=== PATIENT | female | born 1935 | race African-American/Black ===

== ENCOUNTER 2018-10-01 09:50 | Inpatient (IN) | payer MEDICARE ==
--- NOTE | 2018-10-01 10:23 | ER Document Report ---
ED General - General Chief Complaint: Breathing Difficulty Stated Complaint: DIFFICULTY BREATHING Time Seen by Provider: 10/01/18 10:09 Information source: Patient Notes: This 83-year-old relatively healthy female presents to the emergency department as direct admit from Dr. Pastrana's office. Patient reports that she has had some difficulty breathing for approximately 1 week with some wheezing and feeling really tired. Denies other symptoms such as cough fever vomiting diarrhea. Reports she has not been gaining weight. Patient reports she was at Dr. Pastrana's office all day yesterday had a chest x-ray. He called her last night they went to the office today and they told him to come over here for admissions. Patient reports that she has a past medical history of breast cancer with mastectomy on the right side anemia and high blood pressure other cuevas she is relatively healthy. Patient reports she is very active she is out in the garden planting her ochoa and cooking. TRAVEL OUTSIDE OF THE [place] IN LAST 30 DAYS: No - HPI Onset: Last week Onset/Duration: Persistent Quality of pain: No pain Associated symptoms: None Exacerbated by: Denies Relieved by: Denies Similar symptoms previously: No Recently seen / treated by doctor: No - Related Data Allergies/Adverse Reactions: No Known Allergies Allergy (Verified 10/01/18 09:50) Past Medical History - General Information source: Patient, Relative - Social History Smoking Status: Unknown if Ever Smoked Cigarette use (# per day): No Frequency of alcohol use: None Drug Abuse: None Family History: None Patient has suicidal ideation: No Patient has homicidal ideation: No - Medical History Medical History: Other - anemia - Past Medical History Cardiac Medical History: Reports: Hx Hypertension Malignancy Medical History: Reports: Hx Breast Cancer Past Surgical History: Reports: Hx Mastectomy Review of Systems - Review of Systems Notes: Review HPI for review of systems., All other systems negative Physical Exam - Vital signs Vitals: Temp Pulse Resp BP Pulse Ox 97.9 F 94 20 146/87 H 96 10/01/18 09:58 10/01/18 09:58 10/01/18 09:58 10/01/18 09:58 10/01/18 09:58 - General General appearance: Appears well, Alert In distress: None - HEENT Head: Normocephalic, Atraumatic Eyes: Normal Neck: Normal, Supple. No: Lymphadenopathy - Respiratory Respiratory status: No respiratory distress Chest status: Nontender Breath sounds: Normal Chest palpation: Normal - Cardiovascular Rhythm: Regular Heart sounds: Normal auscultation Murmur: No - Abdominal Inspection: Normal Tenderness: Nontender - Back Back: Normal - Extremities General upper extremity: Normal ROM General lower extremity: Normal ROM - Neurological Neuro grossly intact: Yes Cognition: Normal Orientation: AAOx4 [place] Coma Scale Eye Opening: Spontaneous [place] Coma Scale Verbal: Oriented [place] Coma Scale Motor: Obeys Commands [place] Coma Scale Total: 15 Speech: Normal - Psychological Associated symptoms: Normal affect, Normal mood - Skin Skin Temperature: Warm Skin Moisture: Dry Skin Color: Normal Course - Re-evaluation Re-evalutation: 10/01/18 10:28 This 83-year-old female presents as a direct admit from Dr. Pastrana's office for new onset CHF. Patient is alert and oriented talks in clear full sentences in very good spirits. She reports approximately 1 week ago she started having difficulty breathing wheezing and felt really tired. She went to see Dr. Pastrana yesterday he sent her for a chest x-ray. Last night he called the house. Today they return to Dr. Pastrana's office and he sent her here as a direct admit to [facility]. Patient denies pain. Denies fever vomiting diarrhea. Denies recent weight gain. Patient is in excellent spirits happy laughing to [id number] at her bedside. Dr. Pastrana orders completed in [facility]. I instructed patient that there are no beds upstairs that she would be staying with us for a little while and as soon as we had a bed on [facility] she would be sent up there. I also educated patient on low-sodium diet. This does not make her very happy but she did understand. She verbalized understanding. 10/01/18 Dr. Pastrana in the emergency department with patient. - Vital Signs Vital signs: Temp Pulse Resp BP Pulse Ox 97.5 F 96 16 146/82 H 96 10/01/18 16:37 10/01/18 17:00 10/01/18 16:37 10/01/18 16:37 10/01/18 16:37 - Laboratory Result Diagrams: 10/01/18 10:42 10/01/18 10:42 Laboratory results interpreted by me: 10/01/18 10/01/18 10/01/18 10:42 10:42 10:42 RDW 14.7 H Est GFR (Non-Af Amer) 53 L Glucose 126 H Creatine Kinase 137 H NT-Pro-B Natriuret Pep 2180 H TSH 10/01/18 10:42 RDW Est GFR (Non-Af Amer) Glucose Creatine Kinase NT-Pro-B Natriuret Pep TSH 7.98 H Discharge - Discharge Clinical Impression: New onset of congestive heart failure Condition: Stable Disposition: ADMITTED OBSERVATION Admitting Provider: Leiwa Unit Admitted: [facility]
[2018-10-01 10:52] LABS: ABSOLUTE BASOPHILS # (AUTO) 0.1 10^3/uL (0.0-0.2); ABSOLUTE LYMPHOCYTES (AUTO) 1.5 10^3/uL (0.5-4.7); ABSOLUTE MONOCYTES (AUTO) 0.6 10^3/uL (0.1-1.4); ABSOLUTE NEUT (AUTO) 3.3 10^3/uL (1.7-8.2); BASOPHILS % (AUTO) 1.2 % (0-2); EOSINOPHILS % (AUTO) 0.7 % (0-6); LYMPHOCYTES % (AUTO) 27.4 % (13-45); MEAN CORPUSCULAR HGB CONC 33.4 g/dL (32.0-36.0); MEAN CORPUSCULAR VOLUME 87 fl (80-97); MONOCYTES % (AUTO) 10.7 % (3-13); PLATELET COUNT 305 10^3/uL (150-450); RED BLOOD COUNT 4.49 10^6/uL (3.72-5.28); RED CELL DISTRIBUTION WIDTH 14.7 % (11.5-14.0); TOTAL CELLS COUNTED % (AUTO) 100 %; WHITE BLOOD COUNT 5.5 10^3/uL (4.0-10.5)
[2018-10-01 11:10] LABS: ALANINE AMINOTRANSFERASE 16 U/L (9-52); ALBUMIN 4.2 g/dL (3.5-5.0); ALKALINE PHOSPHATASE 112 U/L (38-126); ANION GAP 11 (5-19); ASPARTATE AMINO TRANSFERASE 26 U/L (14-36); BILIRUBIN,DIRECT 0.3 mg/dL (0.0-0.4); BILIRUBIN,TOTAL 0.7 mg/dL (0.2-1.3); BLOOD UREA NITROGEN 16 mg/dL (7-20); CALCIUM 9.4 mg/dL (8.4-10.2); CARBON DIOXIDE 24 mmol/L (22-30); CHLORIDE 106 mmol/L (98-107); CREATINE KINASE 137 U/L (30-135); GLUCOSE 126 mg/dL (75-110); POTASSIUM 3.7 mmol/L (3.6-5.0); TOTAL PROTEIN 8.2 g/dL (6.3-8.2)
[2018-10-01 11:21] LABS: CREATINE KINASE MB 1.05 ng/mL (<4.55); NT PRO BNP 2180 pg/mL (<450)
[2018-10-01 11:23] LABS: TROPONIN I < 0.012 ng/mL
[2018-10-01 13:07] LABS: APPEARANCE,URINE SLIGHTLY-CLOUDY; BILIRUBIN,URINE NEGATIVE (NEGATIVE); COLOR,URINE YELLOW; GLUCOSE, URINE NEGATIVE (NEGATIVE); KETONES,URINE NEGATIVE (NEGATIVE); LEUKOCYTE ESTERASE,URINE NEGATIVE (NEGATIVE); NITRITE,URINE NEGATIVE (NEGATIVE); PROTEIN,URINE 30 mg/dL (NEGATIVE); URINE SPECIFIC GRAVITY 1.024
[2018-10-01 17:49] LABS: FREE T4 (FREE THYROXINE) 1.33 ng/dL (0.78-2.19)
[2018-10-01 18:03] LABS: THYROID STIMULATING HORMONE 7.98 uIU/mL (0.47-4.68)
[2018-10-01] MEDS: FUROSEMIDE INJ/PF 40 MG/4 ML SDV IV SCH (18:59)
[2018-10-01] MEDS: ENOXAPARIN SODIUM INJ 40 MG/0.4 ML DISP.SYRIN SUBCUT SCH (18:59)
[2018-10-01 20:06] LABS: CREATINE KINASE MB 1.13 ng/mL (<4.55); TROPONIN I < 0.012 ng/mL
--- NOTE | 2018-10-01 22:01 | XCELERA REPORT ---
[address] [address] Transthoracic Echocardiogram Report Name: REJI SETHI Age: 83 yrs Gender: Female : 1935 Patient Status: Inpatient Patient Location: [place] [address]^A Study Date: 10/01/2018 11:13 AM Height: 62 in Weight: 158 lb BSA: 1.7 m2 Procedure: A two-dimensional transthoracic echocardiogram with color flow and Doppler was performed. Study Quality: Fair. Reason For Study: new onset chf History: CHF. Ordering Physician: KIMBERLEE MEJIA Performed By: Sierra White Interpretation Summary The left ventricle is mildly dilated. There is normal left ventricular wall thickness. LV EF is 40% to 45% Left ventricular systolic function is moderately reduced. Doppler measurements suggest impaired left ventricular relaxation, which is associated with grade I/IV or mild diastolic dysfunction There is moderate global hypokinesis of the left ventricle. There is no thrombus. No ASD , VSD , or PFO seen. The right ventricle is normal in size and function. The right atrium is normal. The left atrial size is normal. There is no evidence of mitral valve prolapse. There is no vegetation seen on the mitral valve. There is no mitral valve stenosis. There is a mild to moderate amount of mitral regurgitation There is no aortic valvular vegetation. There is aortic sclerosis without aortic stenosis. There is no LVOT obstruction. There is a trace amount of aortic regurgitation There is no tricuspid stenosis. There is a mild amount of tricuspid regurgitation There is mild to moderate pulmonary hypertension by echo RVSp is 44 to 49 mm of Hg , with RA mean of 5 to 10. There is no pulmonic valvular stenosis. The aortic root is normal size. The inferior vena cava appeared normal and decreased > 50% with respiration (RAP 5-10 mmHg) There is no pericardial effusion. MMode/2D Measurements & Calculations RVDd: 2.0 cm LVIDd: 5.0 cm FS: 22.6 % Ao root diam: 2.7 cm IVSd: 0.63 cm LVIDs: 3.9 cm EDV(Teich): LVPWd: 0.99 cm 120.7 ml Ao root area: ESV(Teich): 66.1 ml5.8 cm2 EF(Teich): 45.3 % EDV(MOD-sp4): SV(MOD-sp4): 67.9 ml 32.4 ml ESV(MOD-sp4): 35.5 ml EF(MOD-sp4): 47.7 % Doppler Measurements & Calculations MV E max heber: MV dec slope: Ao V2 max: LV V1 max P.3 cm/sec 105.5 cm/sec 3.1 mmHg MV A max heber: 860.6 cm/sec2 Ao max PG: LV V1 max: 120.2 cm/sec MV dec time: 0.12 sec 4.5 mmHg 88.6 cm/sec MV E/A: 0.89 LV dP/dt: 1587 mmHg/s PA V2 max: TR max heber: 68.9 cm/sec 312.8 cm/sec PA max P.9 mmHg TR max P.1 mmHg Left Ventricle The left ventricle is mildly dilated. There is normal left ventricular wall thickness. LV EF is 40% to 45%. Left ventricular systolic function is moderately reduced. Doppler measurements suggest impaired left ventricular relaxation, which is associated with grade I/IV or mild diastolic dysfunction. There is moderate global hypokinesis of the left ventricle. There is no thrombus. No ASD , VSD , or PFO seen. Right Ventricle The right ventricle is normal in size and function. Atria The right atrium is normal. The left atrial size is normal. Mitral Valve There is mild to moderate mitral annular calcification. There is no evidence of mitral valve prolapse. There is no vegetation seen on the mitral valve. There is no mitral valve stenosis. There is a mild to moderate amount of mitral regurgitation. Aortic Valve There is no aortic valvular vegetation. There is aortic sclerosis without aortic stenosis. There is no LVOT obstruction. There is a trace amount of aortic regurgitation. Tricuspid Valve There is no tricuspid stenosis. There is a mild amount of tricuspid regurgitation. There is mild to moderate pulmonary hypertension by echo. RVSp is 44 to 49 mm of Hg , with RA mean of 5 to 10. Pulmonic Valve There is no pulmonic valvular stenosis. There is a trace amount of pulmonic regurgitation. Great Vessels The aortic root is normal size. The inferior vena cava appeared normal and decreased > 50% with respiration (RAP 5-10 mmHg). Effusions There is no pericardial effusion. : KIMBERLEE MEJIA > Nancy Lemus
[2018-10-02 02:48] LABS: ABSOLUTE BASOPHILS # (AUTO) 0.1 10^3/uL (0.0-0.2); ABSOLUTE EOSINOPHILS # (AUTO) 0.1 10^3/uL (0.0-0.6); ABSOLUTE LYMPHOCYTES (AUTO) 2.2 10^3/uL (0.5-4.7); ABSOLUTE MONOCYTES (AUTO) 0.8 10^3/uL (0.1-1.4); ABSOLUTE NEUT (AUTO) 6.4 10^3/uL (1.7-8.2); BASOPHILS % (AUTO) 1.3 % (0-2); EOSINOPHILS % (AUTO) 0.6 % (0-6); HEMATOCRIT 36.3 % (36.0-47.0); LYMPHOCYTES % (AUTO) 22.5 % (13-45); MEAN CORPUSCULAR HEMOGLOBIN 28.7 pg (27.0-33.4); MEAN CORPUSCULAR HGB CONC 33.1 g/dL (32.0-36.0); MEAN CORPUSCULAR VOLUME 87 fl (80-97); MONOCYTES % (AUTO) 8.2 % (3-13); PLATELET COUNT 255 10^3/uL (150-450); RED BLOOD COUNT 4.19 10^6/uL (3.72-5.28); RED CELL DISTRIBUTION WIDTH 14.6 % (11.5-14.0); SEGMENTED NEUTROPHILS % (AUTO) 67.4 % (42-78); TOTAL CELLS COUNTED % (AUTO) 100 %; WHITE BLOOD COUNT 9.6 10^3/uL (4.0-10.5)
[2018-10-02 02:58] LABS: ANION GAP 11 (5-19); BLOOD UREA NITROGEN 16 mg/dL (7-20); CALCIUM 8.6 mg/dL (8.4-10.2); CARBON DIOXIDE 25 mmol/L (22-30); CHLORIDE 106 mmol/L (98-107); GLUCOSE 143 mg/dL (75-110); POTASSIUM 3.6 mmol/L (3.6-5.0)
[2018-10-02 03:03] LABS: CREATINE KINASE MB 1.02 ng/mL (<4.55)
[2018-10-02 03:10] LABS: ALBUMIN 3.9 g/dL (3.5-5.0); ASPARTATE AMINO TRANSFERASE 28 U/L (14-36); TROPONIN I < 0.012 ng/mL
[2018-10-02 03:11] LABS: ALANINE AMINOTRANSFERASE 12 U/L (9-52); ALKALINE PHOSPHATASE 99 U/L (38-126); BILIRUBIN,DIRECT 0.4 mg/dL (0.0-0.4); BILIRUBIN,TOTAL 0.5 mg/dL (0.2-1.3); DIRECT LDL 130 mg/dL (<100); TOTAL PROTEIN 8.1 g/dL (6.3-8.2); TRIGLYCERIDES 113 mg/dL (<150); VLDL CHOLESTEROL 22.6 mg/dL (10-31)
--- NOTE | 2018-10-02 08:08 | EKG REPORT ---
SEVERITY:- ABNORMAL ECG - SINUS TACHYCARDIA VENTRICULAR PREMATURE COMPLEX PROBABLE LEFT ATRIAL ABNORMALITY LEFT AXIS DEVIATION LVH WITH SECONDARY REPOLARIZATION ABNORMALITY BORDERLINE PROLONGED QT INTERVAL : Confirmed by: Nancy Lemus MD 01-Oct-2018 21:29:34
[2018-10-02] MEDS: FUROSEMIDE INJ/PF 40 MG/4 ML SDV IV SCH (09:26)
[2018-10-02] MEDS: CARVEDILOL 3.125 MG TABLET PO SCH ×2 (09:26→21:11)
[2018-10-02] MEDS: ENOXAPARIN SODIUM INJ 40 MG/0.4 ML DISP.SYRIN SUBCUT SCH (09:26)
[2018-10-02] MEDS: SACUBITRIL/VALSARTAN 24 MG/26 MG TABLET PO SCH ×2 (09:36→17:20)
--- NOTE | 2018-10-02 15:03 | RADIOLOGY REPORT (SQ) ---
EXAM DESCRIPTION: CHEST 2 VIEWS COMPLETED DATE/TIME: 10/02/2018 2:22 pm REASON FOR STUDY: chf COMPARISON: None. EXAM PARAMETERS: NUMBER OF VIEWS: two views TECHNIQUE: Digital Frontal and Lateral radiographic views of the chest acquired. RADIATION DOSE: NA LIMITATIONS: none FINDINGS: LUNGS AND PLEURA: Increasing right pleural effusion. MEDIASTINUM AND HILAR STRUCTURES: No masses or contour abnormalities. HEART AND VASCULAR STRUCTURES: Cardiomegaly. No pulmonary edema. There is ectasia of the ascending aorta. BONES: No acute findings. HARDWARE: None in the chest. OTHER: No other significant finding. IMPRESSION: Increasing right pleural effusion. Cardiomegaly. No pulmonary edema. Ectasia of the a scending aorta. TECHNICAL DOCUMENTATION: JOB ID: [id number] [employer]- All Rights Reserved Reading location - IP/workstation name: [email or web address]
--- NOTE | 2018-10-02 18:18 | EKG REPORT ---
SEVERITY:- ABNORMAL ECG - SINUS TACHYCARDIA PROBABLE LEFT ATRIAL ABNORMALITY LEFT AXIS DEVIATION LVH WITH SECONDARY REPOLARIZATION ABNORMALITY BORDERLINE PROLONGED QT INTERVAL : Confirmed by: Nancy Lemus MD 02-Oct-2018 18:18:08
--- NOTE | 2018-10-02 19:25 | PDOC H&P ---
History of Present Illness Admission Date/PCP: 10/01/18 10:43 ARLETH ROSAS MD History of Present Illness: REJI SETHI is a 83 year old female, She came to the office for the first time yesterday as a new patient, she complained of wheezing about a week ago, she said the symptoms started when she went for a , she thought the symptom was probably because she was overheated.I ordered a chest x-ray, it demonstrated pleural effusion,The symptoms she described was suspicious for CHF, she was admitted from a patient into the hospital for further evaluation of her symptoms. The BNP was elevated,, 2D echo was done, it demonstrated dilated left ventricle with ejection fraction of 40% there was also associated pulmonary hypertension. She has no history of documented heart failure so clearly this is a new onset CHF.She has history of hypertension, she uses only diuretic hydrochlorothiazide/triamterene for the control of blood pressure, She is not even compliant with the medication Past Medical History Cardiac Medical History: Reports: Hypertension Malignancy Medical History: Reports: Breast Cancer Past Surgical History Past Surgical History: Reports: Mastectomy Social History Smoking Status: Unknown if Ever Smoked Frequency of Alcohol Use: None Hx Recreational Drug Use: No Hx Prescription Drug Abuse: No Family History Family History: None Parental Family History Reviewed: Yes Children Family History Reviewed: Yes Sibling(s) Family History Reviewed.: Yes Medication/Allergy Home Medications: Aspirin [Ecotrin 81 mg EC Tablet] 81 mg PO DAILY 10/01/18 Ferrous Sulfate [Slow Fe] 142 mg PO DAILY 10/01/18 Ibuprofen 200 mg PO DAILYP PRN 10/01/18 Triamterene/Hydrochlorothiazid [Maxzide 75 mg-50 mg Tablet] 1 each PO DAILY 10/01/18 Allergies/Adverse Reactions: Something with Codeine in it Allergy (Uncoded 10/02/18 03:41) unspecified Allergy (Uncoded 10/02/18 03:40) Review of Systems Constitutional: PRESENT: fatigue Eyes: ABSENT: visual disturbances Ears: ABSENT: hearing changes Cardiovascular: PRESENT: dyspnea on exertion, edema, orthropnea Respiratory: ABSENT: cough, hemoptysis Gastrointestinal: ABSENT: abdominal pain, constipation, diarrhea, hematemesis, hematochezia, nausea, vomiting Genitourinary: ABSENT: dysuria, hematuria Musculoskeletal: ABSENT: joint swelling Integumentary: ABSENT: rash, wounds Neurological: ABSENT: abnormal gait, abnormal speech, confusion, dizziness, focal weakness, syncope Psychiatric: ABSENT: anxiety, depression, homidical ideation, suicidal ideation Endocrine: ABSENT: cold intolerance, heat intolerance, menstrual abnormalities, polydipsia, polyuria Hematologic/Lymphatic: ABSENT: easy bleeding, easy bruising, lymphadenopathy Physical Exam Vital Signs: Temp Pulse Resp BP Pulse Ox 98.0 F 93 16 129/79 H 92 10/02/18 15:27 10/02/18 15:27 10/02/18 15:27 10/02/18 15:27 10/02/18 15:27 Intake & Output 10/01/18 10/02/18 10/03/18 06:59 06:59 06:59 Intake Total 240 515 Output Total 100 500 Balance 140 15 Weight 69.7 kg General appearance: PRESENT: mild distress Head exam: PRESENT: atraumatic, normocephalic Eye exam: PRESENT: conjunctiva pink, EOMI, PERRLA Ear exam: PRESENT: normal external ear exam Mouth exam: PRESENT: moist, tongue midline Neck exam: PRESENT: full ROM Respiratory exam: PRESENT: wheezes Cardiovascular exam: PRESENT: irregular rhythm, RRR, +S1, +S2 Pulses: PRESENT: normal dorsalis pedis pul, +2 pedal pulses bilateral Vascular exam: PRESENT: normal capillary refill GI/Abdominal exam: PRESENT: normal bowel sounds, soft Rectal exam: PRESENT: deferred Extremities exam: PRESENT: pedal edema Neurological exam: PRESENT: alert, CN II-XII grossly intact Psychiatric exam: PRESENT: appropriate affect, normal mood Skin exam: PRESENT: dry, intact, warm Results Laboratory Results: 10/02/18 02:31 10/02/18 02:31 10/02/18 10/02/18 10/02/18 02:31 02:31 02:31 WBC 9.6 RBC 4.19 Hgb 12.0 Hct 36.3 MCV 87 MCH 28.7 MCHC 33.1 RDW 14.6 H Plt Count 255 Seg Neutrophils % 67.4 Lymphocytes % 22.5 Monocytes % 8.2 Eosinophils % 0.6 Basophils % 1.3 Absolute Neutrophils 6.4 Absolute Lymphocytes 2.2 Absolute Monocytes 0.8 Absolute Eosinophils 0.1 Absolute Basophils 0.1 Sodium 141.5 Potassium 3.6 Chloride 106 Carbon Dioxide 25 Anion Gap 11 BUN 16 Creatinine 1.06 Est GFR ( Amer) > 60 Est GFR (Non-Af Amer) 49 L Glucose 143 H Calcium 8.6 Total Bilirubin 0.5 AST 28 ALT 12 Alkaline Phosphatase 99 Total Protein 8.1 Albumin 3.9 Triglycerides 113 Cholesterol 192.00 LDL Cholesterol Direct 130 H VLDL Cholesterol 22.6 HDL Cholesterol 37 L 10/01/18 10/01/18 10/01/18 10:42 10:42 19:21 Creatine Kinase 137 H 149 H CK-MB (CK-2) 1.05 Troponin I < 0.012 NT-Pro-B Natriuret Pep 2180 H 10/01/18 10/02/18 10/02/18 19:21 02:31 02:31 Creatine Kinase 142 H CK-MB (CK-2) 1.13 1.02 Troponin I < 0.012 < 0.012 NT-Pro-B Natriuret Pep Impressions: Chest X-Ray 10/02/18 00:00 IMPRESSION: Increasing right pleural effusion. Cardiomegaly. No pulmonary edema. Ectasia of the ascending aorta. Assessment & Plan - Diagnosis (1) Acute systolic heart failure Is this a current diagnosis for this admission?: Yes Plan: She has acute systolic heart failure, this is a new diagnosis for this patient, we need to rule out underlining ischemic heart disease, patient will be be scheduled for a stress test. Start Entresto, evidence-based beta-reggie carvedilol, furosemide (2) Pulmonary hypertension Is this a current diagnosis for this admission?: Yes (3) Essential (primary) hypertension Is this a current diagnosis for this admission?: Yes (4) Pleural effusion, right Is this a current diagnosis for this admission?: Yes
--- NOTE | 2018-10-02 19:29 | PDOC PROGRESS REPORT ---
Subjective Progress Note for:: 10/02/18 Subjective:: Patient was seen by the bedside, chest x-ray showed right pleural effusion, thoracentesis will be ordered Reason For Visit: HEART FAILURE Physical Exam Vital Signs: Temp Pulse Resp BP Pulse Ox 98.0 F 93 16 129/79 H 92 10/02/18 15:27 10/02/18 15:27 10/02/18 15:27 10/02/18 15:27 10/02/18 15:27 Intake & Output 10/01/18 10/02/18 10/03/18 06:59 06:59 06:59 Intake Total 240 515 Output Total 100 500 Balance 140 15 Weight 69.7 kg Results Laboratory Results: 10/02/18 02:31 10/02/18 02:31 10/02/18 10/02/18 10/02/18 02:31 02:31 02:31 WBC 9.6 RBC 4.19 Hgb 12.0 Hct 36.3 MCV 87 MCH 28.7 MCHC 33.1 RDW 14.6 H Plt Count 255 Seg Neutrophils % 67.4 Lymphocytes % 22.5 Monocytes % 8.2 Eosinophils % 0.6 Basophils % 1.3 Absolute Neutrophils 6.4 Absolute Lymphocytes 2.2 Absolute Monocytes 0.8 Absolute Eosinophils 0.1 Absolute Basophils 0.1 Sodium 141.5 Potassium 3.6 Chloride 106 Carbon Dioxide 25 Anion Gap 11 BUN 16 Creatinine 1.06 Est GFR ( Amer) > 60 Est GFR (Non-Af Amer) 49 L Glucose 143 H Calcium 8.6 Total Bilirubin 0.5 AST 28 ALT 12 Alkaline Phosphatase 99 Total Protein 8.1 Albumin 3.9 Triglycerides 113 Cholesterol 192.00 LDL Cholesterol Direct 130 H VLDL Cholesterol 22.6 HDL Cholesterol 37 L 10/01/18 10/01/18 10/01/18 10:42 10:42 19:21 Creatine Kinase 137 H 149 H CK-MB (CK-2) 1.05 Troponin I < 0.012 NT-Pro-B Natriuret Pep 2180 H 10/01/18 10/02/18 10/02/18 19:21 02:31 02:31 Creatine Kinase 142 H CK-MB (CK-2) 1.13 1.02 Troponin I < 0.012 < 0.012 NT-Pro-B Natriuret Pep Impressions: Chest X-Ray 10/02/18 00:00 IMPRESSION: Increasing right pleural effusion. Cardiomegaly. No pulmonary edema. Ectasia of the ascending aorta. Assessment & Plan - Diagnosis (1) Acute systolic heart failure Is this a current diagnosis for this admission?: Yes Plan: She has acute systolic heart failure, this is a new diagnosis for this patient, we need to rule out underlining ischemic heart disease, patient will be be scheduled for a stress test. Start Entresto, evidence-based beta-reggie carvedilol, furosemide (2) Pulmonary hypertension Is this a current diagnosis for this admission?: Yes (3) Essential (primary) hypertension Is this a current diagnosis for this admission?: Yes (4) Pleural effusion, right Is this a current diagnosis for this admission?: Yes Plan: order thoracentesis
[2018-10-02 19:59] LABS: INTERNATIONAL RATION (INR) 1.07; PROTHROMBIN TIME 13.9 SEC (11.4-15.4)
[2018-10-02 20:00] LABS: PARTIAL THROMBOPLASTIN TIME 35.8 SEC (23.5-35.8)
[2018-10-02 20:30] LABS: D-DIMER 5.77 ug/mL (0.00-0.50)
[2018-10-03 05:52] LABS: ABSOLUTE BASOPHILS # (AUTO) 0.1 10^3/uL (0.0-0.2); ABSOLUTE LYMPHOCYTES (AUTO) 1.3 10^3/uL (0.5-4.7); ABSOLUTE MONOCYTES (AUTO) 0.7 10^3/uL (0.1-1.4); ABSOLUTE NEUT (AUTO) 4.2 10^3/uL (1.7-8.2); BASOPHILS % (AUTO) 0.9 % (0-2); EOSINOPHILS % (AUTO) 0.4 % (0-6); HEMATOCRIT 39.8 % (36.0-47.0); HEMOGLOBIN 13.4 g/dL (12.0-15.5); LYMPHOCYTES % (AUTO) 20.1 % (13-45); MEAN CORPUSCULAR HEMOGLOBIN 29.2 pg (27.0-33.4); MEAN CORPUSCULAR HGB CONC 33.8 g/dL (32.0-36.0); MEAN CORPUSCULAR VOLUME 86 fl (80-97); MONOCYTES % (AUTO) 11.2 % (3-13); PLATELET COUNT 314 10^3/uL (150-450); RED BLOOD COUNT 4.61 10^6/uL (3.72-5.28); RED CELL DISTRIBUTION WIDTH 14.7 % (11.5-14.0); SEGMENTED NEUTROPHILS % (AUTO) 67.4 % (42-78); TOTAL CELLS COUNTED % (AUTO) 100 %; WHITE BLOOD COUNT 6.3 10^3/uL (4.0-10.5)
[2018-10-03 06:03] LABS: ALANINE AMINOTRANSFERASE 16 U/L (9-52); ALBUMIN 3.8 g/dL (3.5-5.0); ALKALINE PHOSPHATASE 114 U/L (38-126); ANION GAP 10 (5-19); ASPARTATE AMINO TRANSFERASE 22 U/L (14-36); BILIRUBIN,DIRECT 0.3 mg/dL (0.0-0.4); BILIRUBIN,TOTAL 0.6 mg/dL (0.2-1.3); BLOOD UREA NITROGEN 17 mg/dL (7-20); CALCIUM 9.3 mg/dL (8.4-10.2); CARBON DIOXIDE 24 mmol/L (22-30); CHLORIDE 106 mmol/L (98-107); GLUCOSE 120 mg/dL (75-110); POTASSIUM 3.8 mmol/L (3.6-5.0); TOTAL PROTEIN 7.8 g/dL (6.3-8.2)
[2018-10-03] MEDS: ENOXAPARIN SODIUM INJ 40 MG/0.4 ML DISP.SYRIN SUBCUT SCH (09:40)
[2018-10-03] MEDS: FUROSEMIDE INJ/PF 40 MG/4 ML SDV IV SCH (10:05)
[2018-10-03] MEDS: CARVEDILOL 3.125 MG TABLET PO SCH ×2 (10:05→21:11)
[2018-10-03] MEDS: SACUBITRIL/VALSARTAN 24 MG/26 MG TABLET PO SCH ×2 (10:05→17:25)
[2018-10-03] MEDS ORDERED: REGADENOSON INJ 0.4 MG/5 ML DISP.SYRIN IV ONE (10:20)
--- NOTE | 2018-10-03 11:43 | RADIOLOGY REPORT (SQ) ---
EXAM DESCRIPTION: CHEST SINGLE VIEW COMPLETED DATE/TIME: 10/03/2018 11:07 am REASON FOR STUDY: RIGHT PLEURAL EFFUSION POST THORACENTESIS COMPARISON: Chest film 10/02/2018 1416 hours EXAM PARAMETERS: NUMBER OF VIEWS: One view. TECHNIQUE: Single frontal radiographic view of the chest acquired. RADIATION DOSE: NA LIMITATIONS: None. FINDINGS: LUNGS AND PLEURA: Post right-sided thoracentesis. No right-sided pneumothorax on the imme diate post procedure chest film. There is right sided volume loss with elevation of the right hemidiaphragm. Consolidation in the rig ht lower lobe is present worrisome for postobstructive change from hilar mass. No right-sided pneumo thorax Left lung well inflated and clear. No left pleural effusion or pneumothorax. MEDIASTINUM AND HILAR STRUCTURES: Right hilar enlargement HEART AND VASCULAR STRUCTURES: Heart normal in size. Normal vasculature. BONES: No acute findings. HARDWARE: Surgical clips right axilla post mastectomy. OTHER: No other significant finding. IMPRESSION: No pneumothorax post right-sided thoracentesis. Right hilar mass with right lower lobe collapse/ consolidation and volume loss. TECHNICAL DOCUMENTATION: JOB ID: [id number] [employer]- All Rights Reserved Reading location - IP/workstation name: [email or web address]
--- NOTE | 2018-10-03 11:45 | RADIOLOGY REPORT (SQ) ---
EXAM DESCRIPTION: U/S THORACENTESIS WITH IMAGING COMPLETED DATE/TIME: 10/03/2018 11:19 am REASON FOR STUDY: PLEURAL EFFUSION R07.89 OTHER CHEST PAIN COMPARISON: Two-view chest 10/02/2018 LIMITATIONS: None. PROCEDURE: Procedure, risks, benefit, and alternative explained to patient who then gave written con sent. The posterior right chest wall was marked using ultrasound guidance. A time-out was called fo r correct marking verification. Chest prepped and draped using sterile technique. Local anesthesia a chieved using 4 ml of 1% lidocaine injection. A 6fr Safe-T- Centesis set was introduced into the rig ht pleural space. Fluid was aspirated. The catheter was removed and the entry site was covered with sterile bandage. No immediate complications noted. Specimens were sent for testing. Images acquired during the procedure were stored on PACS. FINDINGS: ENTRY SITE: Posterior right pleural space FLUID VOLUME: 400 mL FLUID ANALYSIS: Bloody fluid OTHER: Sent for testing, cytology IMPRESSION: SUCCESSFUL THORACENTESIS USING ULTRASOUND GUIDANCE. COMMENT: Patient medication list reviewed: Yes- Quality ID# [id number]:Eligible professional attests to doc umenting in the medical record they obtained, updated, or reviewed the patient's current medications. TECHNICAL DOCUMENTATION: JOB ID: [id number] [employer]- All Rights Reserved Reading location - IP/workstation name: [email or web address]
[2018-10-03] MEDS ORDERED: NORMAL SALINE 1000 ML 1,000 ML IV PRN (12:01)
--- NOTE | 2018-10-03 13:37 | RADIOLOGY REPORT (SQ) ---
EXAM DESCRIPTION: CHEST SINGLE VIEW COMPLETED DATE/TIME: 10/03/2018 1:25 pm REASON FOR STUDY: RIGHT PLEURAL EFFUSION POST THORACENTESIS COMPARISON: Minimal right pleural effusion. 10/03/2018 EXAM PARAMETERS: NUMBER OF VIEWS: One view. TECHNIQUE: Single frontal radiographic view of the chest acquired. RADIATION DOSE: NA LIMITATIONS: None. FINDINGS: LUNGS AND PLEURA: No opacities, masses or pneumothorax. No pleural effusion. MEDIASTINUM AND HILAR STRUCTURES: No masses. Contour normal. HEART AND VASCULAR STRUCTURES: Cardiomegaly. Ectasia of the ascending aorta. No pulmonary edema. BONES: No acute findings. HARDWARE: None in the chest. OTHER: No other significant finding. IMPRESSION: No pneumothorax status post thoracentesis. Cardiomegaly without pulmonary edema. Ectas ia of the ascending aorta. TECHNICAL DOCUMENTATION: JOB ID: [id number] [employer]- All Rights Reserved Reading location - IP/workstation name: [email or web address]
--- NOTE | 2018-10-03 14:40 | DRAGON STRESS TEST REPORT ---
Intravenous Lexiscan Cardiolite stress test using single photon emmision computerized tomography. Date of procedure: 10/03/2018. Ordering Provider: Dr. Pastrana. Patient's status: In Patient. Indication: Chest pain. Coronary risk factors: Age, diabetes mellitus, and hypertension. Resting EKG: Sinus Rhythm. T inversion anterior and lateral leads. Stress EKG: No changes of ischemia. The patient had no chest pain or discomfort, and there were no arrhythmias seen. Reason for termination: Protocol. Conclusions: Normal EKG and hemodynamic response to IV Lexiscan. Nuclear data: At rest the patient was given 10.92 millicuries of technetium 99m sestamibi injected intravenously. As per protocol rest non gated SPECT images were obtained. Subsequently the patient was given intravenous Lexiscan at a dose of 0.4 mg in 5 mL intravenously, followed by flush with normal saline. Subsequently the stress dose of 32.5 millicuries of technetium 99m sestamibi was injected intravenously. As per protocol stress gated images were obtained. Nuclear interpretation: Review of images showed that there is a mild to moderate perfusion defect involving the apical inferior wall in the stress images which normalizes on the rest images. This area had normal thickening. The rest of the myocardial segments are normal function at rest and normal perfusion post stress with IV Lexiscan. All segments of the myocardium had normal thickening by gated study. Although the left ventricular size is normal there is global diffuse hypokinesis consistent with cardiomyopathy. T. I D. ratio was normal at 0.93. There is no transient ischemic dilatation of the left ventricle. Computer read rest, and stress left ventricular ejection fraction were 27 %, and 25 %, respectively. Conclusion: 1. There is scintigraphic evidence of Lexiscan induced mild to moderate myocardial ischemia, involving the apical inferior wall. 2. There is no scintigraphic evidence of myocardial infarction/scar. 3. Evidence of cardiomyopathy with significantly depressed LV systolic function. Recommendations: 1. Aggressive treatment of coronary artery disease and cardiomyopathy. 2. In view of the patient's LV dysfunction would strongly recommend cardiac catheterization. 3. Check echo for LV ejection fraction correlation. 4. Aggressive risk factor modification, and treating the underlying co- morbidities. The above findings were discussed with Dr. Pastrana on the telephone. [facility]
[2018-10-03 14:45] LABS: FLUID APPEARANCE TURBID; FLUID COLOR RED; FLUID SOURCE LUNG; FLUID TYPE PLEURAL; FLUID VISCOSITY LIQUID
--- NOTE | 2018-10-03 14:57 | RADIOLOGY REPORT (SQ) ---
EXAM DESCRIPTION: CT CHEST WITH COMPLETED DATE/TIME: 10/03/2018 2:29 pm REASON FOR STUDY: hilar mass R07.89 OTHER CHEST PAIN COMPARISON: Chest films 10/03/2018, 09/30/2018 TECHNIQUE: CT scan of the chest performed using helical scanning technique with dynamic intravenous contrast injection. Images reviewed with lung, soft tissue and bone windows. Reconstructed coronal and sagittal MPR and MIP images reviewed. All images stored on PACS. All CT scanners at this facility use dose modulation, iterative reconstruction, and/or weight based d osing when appropriate to reduce radiation dose to as low as reasonably achievable (ALARA). [facility]: Dose Right [facility]: CareDose [facility]: Dose Right [facility]: Teradose 4D [facility]: Viratech CONTRAST TYPE AND DOSE: contrast/concentration: Isovue 350.00 mg/ml; Total Contrast Delivered: 66.7 ml; Total Saline Delivered: 20.0 ml RENAL FUNCTION: Creatinine 0.89 RADIATION DOSE: CT Rad equipment meets quality standard of care and radiation dose reduction techniq ues were employed. CTDIvol: 5.8 mGy. DLP: 213 mGy-cm. . LIMITATIONS: None. FINDINGS: LUNGS AND PLEURA: There is a larger right-sided mediastinal and hilar mass which narrows t he segmental bronchi to the right lower lobe, with a peripheral rim of lung parenchyma volume loss wi th air bronchograms just above the right hemidiaphragm. A 7 mm smooth round nodule is present in the superior segment right lower lobe, axial image 56/121. A 5 mm smooth round noncalcified nodule is present in the left upper lobe adjacent to the major fissu re on axial image 38/121. Patient is post right mastectomy and axillary surgical dissection. Old radiation therapy changes pre sent along the anterior aspect of the right upper lobe. No acute infiltrates. No pleural effusion. No pneumothorax. HILAR AND MEDIASTINAL STRUCTURES: There is a right-sided mediastinal mass, extending from the thoraci c inlet along the right peritracheal and right hilar regions down to the right hemidiaphragm. This m easures 12.6 cm craniocaudad by 4.5 cm transverse by 6 cm AP, best shown on sagittal image 29, jackson l image 39, and axial images 17-40. This most likely represents a primary malignancy, small cell veena g cancer versus lymphoma are considerations. There is extrinsic compression on the right lower lobe segmental airways by the right-sided mass. No significant extrinsic compression of the right brachiocephalic artery or vein, left brachiocephalic vein or superior vena cava. HEART AND VASCULAR STRUCTURES: No aneurysm or dissection. No central pulmonary emboli. No pericardi al effusion. HARDWARE: None in the chest. UPPER ABDOMEN: Small hiatal hernia. 1 cm nodule is present between the right hemidiaphragm and right lobe liver on axial image 49. THYROID AND OTHER SOFT TISSUES: Old right mastectomy with right axillary surgical clips. BONES: No significant finding. OTHER: No other significant finding. IMPRESSION: 12.6 x 4.5 x 6 cm right-sided mediastinal mass worrisome for primary malignancy, lung ca ncer versus lymphoma are considerations. Recurrent breast cancer is possible. TECHNICAL DOCUMENTATION: JOB ID: [id number] Quality ID # [id number]: Final reports with documentation of one or more dose reduction techniques (e.g., Au tomated exposure control, adjustment of the mA and/or kV according to patient size, use of iterative reconstruction technique) 2010 [email or web address]- All Rights Reserved Reading location - IP/workstation name: [email or web address]
--- NOTE | 2018-10-03 18:58 | PDOC PROGRESS REPORT ---
Subjective Progress Note for:: 10/03/18 Subjective:: Patient was seen by the bedside, she was admitted because of concern for CHF, 2D echo was done that demonstrated cardiomyopathy with ejection fraction of 40%, chest x-ray that was done demonstrated right pleural effusion, that raises my concern that if she truly has CHF the pleural effusion should be bilateral because of my concern and requested for thoracentesis. The thoracentesis demonstrated bloody pleural effusion with hilar mass CT chest was done this afternoon it showed a right-sided mediastinal mass extending from the thoracic inlet along the right peritracheal and right hilar regions down to the right hemidiaphragm this mass measures 12.6 cm craniocaudal by 4.5 cm transverse by 6 cm AP highly suspicious for a primary malignancy. There is also extrinsic compression of the right lower lobe segmental airway with a right-sided mass.She also had a stress test today, the stress test was positive for ischemia the post stress test EF was about 30%.I discussed all these findings with the family today including the patient and the children she will need a biopsy of this mass to determine if this is a recurrent breast cancer, she has a history of breast cancer obviously she will need oncology follow-up probably cardiology follow-up. I also explained to the family that I be out of the office and the hospital for the coming week. Dr. Chandler and Dr. anderson will be covering my patients Reason For Visit: ACUTE SYSTOLIC FAILURE Physical Exam Vital Signs: Temp Pulse Resp BP Pulse Ox 97.9 F 88 18 122/69 95 10/03/18 16:18 10/03/18 16:18 10/03/18 16:18 10/03/18 16:18 10/03/18 16:18 Intake & Output 10/02/18 10/03/18 10/04/18 06:59 06:59 06:59 Intake Total 240 515 200 Output Total 100 800 Balance 140 -285 200 Weight 69.7 kg 70.7 kg General appearance: PRESENT: no acute distress Eye exam: PRESENT: PERRLA Respiratory exam: PRESENT: rhonchi Cardiovascular exam: PRESENT: +S1, +S2 GI/Abdominal exam: PRESENT: soft Neurological exam: PRESENT: alert Results Laboratory Results: 10/03/18 05:17 10/03/18 05:17 10/03/18 10/03/18 10/03/18 05:17 05:17 10:50 WBC 6.3 RBC 4.61 Hgb 13.4 Hct 39.8 MCV 86 MCH 29.2 MCHC 33.8 RDW 14.7 H Plt Count 314 Seg Neutrophils % 67.4 Lymphocytes % 20.1 Monocytes % 11.2 Eosinophils % 0.4 Basophils % 0.9 Absolute Neutrophils 4.2 Absolute Lymphocytes 1.3 Absolute Monocytes 0.7 Absolute Eosinophils 0.0 Absolute Basophils 0.1 Sodium 140.2 Potassium 3.8 Chloride 106 Carbon Dioxide 24 Anion Gap 10 BUN 17 Creatinine 0.89 Est GFR ( Amer) > 60 Est GFR (Non-Af Amer) > 60 Glucose 120 H Calcium 9.3 Total Bilirubin 0.6 AST 22 ALT 16 Alkaline Phosphatase 114 Total Protein 7.8 Albumin 3.8 Fluid Type PLEURAL Fluid Source LUNG Fluid Color RED Fluid Appearance TURBID Fluid Viscosity LIQUID Fluid WBC 18247 Fluid RBC 273198 10/01/18 10/01/18 10/01/18 10:42 10:42 19:21 Creatine Kinase 137 H 149 H CK-MB (CK-2) 1.05 Troponin I < 0.012 NT-Pro-B Natriuret Pep 2180 H 10/01/18 10/02/18 10/02/18 19:21 02:31 02:31 Creatine Kinase 142 H CK-MB (CK-2) 1.13 1.02 Troponin I < 0.012 < 0.012 NT-Pro-B Natriuret Pep Impressions: Chest CT 10/03/18 00:00 IMPRESSION: 12.6 x 4.5 x 6 cm right-sided mediastinal mass worrisome for primary malignancy, lung cancer versus lymphoma are considerations. Recurrent breast cancer is possible. Chest X-Ray 10/03/18 12:56 IMPRESSION: No pneumothorax status post thoracentesis. Cardiomegaly without pulmonary edema. Ectasia of the ascending aorta. Thoracentesis Ultrasound 10/03/18 19:06 IMPRESSION: SUCCESSFUL THORACENTESIS USING ULTRASOUND GUIDANCE. Assessment & Plan - Diagnosis (1) Acute systolic heart failure Is this a current diagnosis for this admission?: Yes (2) Pulmonary hypertension Is this a current diagnosis for this admission?: Yes (3) Essential (primary) hypertension Is this a current diagnosis for this admission?: Yes (4) Pleural effusion, right Is this a current diagnosis for this admission?: Yes (5) Malignant pleural effusion Is this a current diagnosis for this admission?: Yes Plan: 400 cc of hemorrhagic pleural fluid was drained suggesting malignant pleural effusion,Fluid sent for cytology (6) Mediastinal mass Is this a current diagnosis for this admission?: Yes Plan: CT-guided biopsy ordered (7) Ischemic cardiomyopathy Is this a current diagnosis for this admission?: Yes
[2018-10-04] MEDS: SACUBITRIL/VALSARTAN 24 MG/26 MG TABLET PO SCH ×2 (10:08→17:28)
[2018-10-04] MEDS: CARVEDILOL 3.125 MG TABLET PO SCH ×2 (10:08→21:45)
[2018-10-04] MEDS: ENOXAPARIN SODIUM INJ 40 MG/0.4 ML DISP.SYRIN SUBCUT SCH (10:08)
[2018-10-04 18:55] LABS: TOTAL PROTEIN BODY FLUID 5.4 g/dL (.)
--- NOTE | 2018-10-04 19:30 | PDOC PROGRESS REPORT ---
Subjective Progress Note for:: 10/04/18 Subjective:: Patient denied any chest pain or difficulty with breathing. No fever or chills. No nausea, vomiting or abdominal pain. No constipation. Appetiet and po intake satisfactory. Daughter at bedside at the time of my evaluation. Reason For Visit: ACUTE SYSTOLIC FAILURE Physical Exam Vital Signs: Temp Pulse Resp BP Pulse Ox 98.1 F 101 H 18 115/68 96 10/04/18 12:00 10/04/18 14:00 10/04/18 12:00 10/04/18 12:00 10/04/18 12:00 Intake & Output 10/03/18 10/04/18 10/05/18 06:59 06:59 06:59 Intake Total 515 1015 Output Total 800 400 Balance -285 615 Weight 70.7 kg 72.3 kg General appearance: PRESENT: no acute distress Head exam: PRESENT: atraumatic, normocephalic Eye exam: PRESENT: conjunctiva pink. ABSENT: scleral icterus Ear exam: PRESENT: normal external ear exam Mouth exam: PRESENT: moist Respiratory exam: PRESENT: clear to auscultation lukas, decreased breath sounds - reduced breath sounds at lung bases Cardiovascular exam: PRESENT: RRR. ABSENT: diastolic murmur, rubs, systolic murmur Vascular exam: ABSENT: pallor GI/Abdominal exam: PRESENT: normal bowel sounds, soft. ABSENT: distended, guarding, mass, organolmegaly, rebound, tenderness Extremities exam: ABSENT: pedal edema Neurological exam: PRESENT: alert, awake, oriented to person, oriented to place, oriented to time, oriented to situation, CN II-XII grossly intact. ABSENT: motor sensory deficit Psychiatric exam: PRESENT: appropriate affect, normal mood. ABSENT: homicidal ideation, suicidal ideation Skin exam: PRESENT: dry, warm Results Laboratory Results: 10/03/18 05:17 10/03/18 05:17 10/01/18 10/01/18 10/01/18 10:42 10:42 19:21 Creatine Kinase 137 H 149 H CK-MB (CK-2) 1.05 Troponin I < 0.012 NT-Pro-B Natriuret Pep 2180 H 10/01/18 10/02/18 10/02/18 19:21 02:31 02:31 Creatine Kinase 142 H CK-MB (CK-2) 1.13 1.02 Troponin I < 0.012 < 0.012 NT-Pro-B Natriuret Pep Impressions: Chest CT 10/03/18 00:00 IMPRESSION: 12.6 x 4.5 x 6 cm right-sided mediastinal mass worrisome for primary malignancy, lung cancer versus lymphoma are considerations. Recurrent breast cancer is possible. Chest X-Ray 10/03/18 12:56 IMPRESSION: No pneumothorax status post thoracentesis. Cardiomegaly without pulmonary edema. Ectasia of the ascending aorta. Thoracentesis Ultrasound 10/03/18 19:06 IMPRESSION: SUCCESSFUL THORACENTESIS USING ULTRASOUND GUIDANCE. Assessment & Plan - Diagnosis (1) Acute systolic heart failure Is this a current diagnosis for this admission?: Yes Plan: Continue current medication, diet and fluid restrictions management. (2) Essential (primary) hypertension Is this a current diagnosis for this admission?: Yes Plan: Maintain on current anti HTN medication management. (3) Pleural effusion, right Is this a current diagnosis for this admission?: Yes Plan: Follow up on cytology report on pleural fluid for malignancy. (4) Mediastinal mass Is this a current diagnosis for this admission?: Yes Plan: Possibility of recurrent breast cancer is tenable but a de yayo lesion is concerning in view of her history of malignancy. - Time Time Spent with patient: 25-34 minutes Medications reviewed and adjusted accordingly: Yes Anticipated discharge: Home with Homehealth Within: Other - Inpatient Certification Based on my medical assessment, after consideration of the patient's c omorbidities, presenting symptoms, or acuity I expect that the services needed warrant INPATIENT care.: Yes I certify that my determination is in accordance with my understanding of Medicare's requirements for reasonable and necessary INPATIENT services [42 CFR 412.3e].: Yes Medical Necessity: Significant Comorbidiites Make Outpatient Treatment Too Risky, Need Close Monitoring Due to Risk of Patient Decompensation, Need For Continuous Telemetry Monitoring, Risk of Complication if Not Cared For in Hospital, Risk of Diagnosis Which Will Require Inpatient Eval/Care/Monitoring Post Hospital Care: D/C Chair Inspector And Leveler Documentation - Plan Summary Plan Summary: Continue current medication management. Follow up on pleural effusion cytology findings.
[2018-10-05] MEDS: ENOXAPARIN SODIUM INJ 40 MG/0.4 ML DISP.SYRIN SUBCUT SCH (09:44)
[2018-10-05] MEDS: CARVEDILOL 3.125 MG TABLET PO SCH ×2 (09:48→21:27)
[2018-10-05] MEDS: SACUBITRIL/VALSARTAN 24 MG/26 MG TABLET PO SCH ×2 (09:48→17:26)
--- NOTE | 2018-10-05 13:21 | PDOC PROGRESS REPORT ---
Subjective Progress Note for:: 10/05/18 Subjective:: Patient denied any chest pain or difficulty with breathing. No fever or chills. No nausea, vomiting or abdominal pain. No constipation. Son at bedside raised issue of applying for medicaid. Reason For Visit: ACUTE SYSTOLIC FAILURE Physical Exam Vital Signs: Temp Pulse Resp BP Pulse Ox 98.0 F 80 14 104/62 94 10/05/18 11:44 10/05/18 11:44 10/05/18 11:44 10/05/18 11:44 10/05/18 11:44 Intake & Output 10/04/18 10/05/18 10/06/18 06:59 06:59 06:59 Intake Total 1015 Output Total 400 Balance 615 Weight 72.3 kg 72.8 kg Physical Exam: General appearance: PRESENT: no acute distress Head exam: PRESENT: atraumatic, normocephalic Eye exam: PRESENT: conjunctiva pink. ABSENT: pallor, scleral icterus Ear exam: PRESENT: normal external ear exam Mouth exam: PRESENT: moist Respiratory exam: PRESENT: clear to auscultation lukas, decreased breath sounds - reduced breath sounds at lung bases Cardiovascular exam: PRESENT: RRR. ABSENT: diastolic murmur, rubs, systolic murmur GI/Abdominal exam: PRESENT: normal bowel sounds, soft. ABSENT: distended, guarding, mass, organomegaly, rebound, tenderness Extremities exam: ABSENT: pedal edema Neurological exam: PRESENT: alert, awake, oriented to person, oriented to place, oriented to time, oriented to situation, CN II-XII grossly intact. ABSENT: motor sensory deficit Psychiatric exam: PRESENT: appropriate affect, normal mood. ABSENT: homicidal ideation, suicidal ideation Skin exam: PRESENT: dry, warm Results Laboratory Results: 10/03/18 05:17 10/03/18 05:17 10/03/18 10/03/18 10:50 10:50 Fluid Glucose 81 Fluid Total Protein 5.4 Fluid LDH 440 Fluid Amylase 38 10/01/18 12:50 Clean Catch Midstream Urine Culture - Final Urogenital Comfort 10/01/18 10/01/18 10/01/18 10:42 10:42 19:21 Creatine Kinase 137 H 149 H CK-MB (CK-2) 1.05 Troponin I < 0.012 NT-Pro-B Natriuret Pep 2180 H 10/01/18 10/02/18 10/02/18 19:21 02:31 02:31 Creatine Kinase 142 H CK-MB (CK-2) 1.13 1.02 Troponin I < 0.012 < 0.012 NT-Pro-B Natriuret Pep Impressions: Chest CT 10/03/18 00:00 IMPRESSION: 12.6 x 4.5 x 6 cm right-sided mediastinal mass worrisome for primary malignancy, lung cancer versus lymphoma are considerations. Recurrent breast cancer is possible. Chest X-Ray 10/03/18 12:56 IMPRESSION: No pneumothorax status post thoracentesis. Cardiomegaly without pulmonary edema. Ectasia of the ascending aorta. Thoracentesis Ultrasound 10/03/18 19:06 IMPRESSION: SUCCESSFUL THORACENTESIS USING ULTRASOUND GUIDANCE. Assessment & Plan - Diagnosis (1) Acute systolic heart failure Is this a current diagnosis for this admission?: Yes (2) Essential (primary) hypertension Is this a current diagnosis for this admission?: Yes (3) Pleural effusion, right Is this a current diagnosis for this admission?: Yes (4) Mediastinal mass Is this a current diagnosis for this admission?: Yes - Time Time Spent with patient: 25-34 minutes Medications reviewed and adjusted accordingly: Yes Anticipated discharge: Home with Homehealth Within: Other - Inpatient Certification Based on my medical assessment, after consideration of the patient's comorbidities, presenting symptoms, or acuity I expect that the services needed warrant INPATIENT care.: Yes I certify that my determination is in accordance with my understanding of Medicare's requirements for reasonable and necessary INPATIENT services [42 CFR 412.3e].: Yes Medical Necessity: Significant Comorbidiites Make Outpatient Treatment Too Risky, Need Close Monitoring Due to Risk of Patient Decompensation, Need For Continuous Telemetry Monitoring, Risk of Complication if Not Cared For in Hospital, Risk of Diagnosis Which Will Require Inpatient Eval/Care/Monitoring Post Hospital Care: D/C Distance Education Coordinator Documentation - Plan Summary Plan Summary: Continue current medication management. Follow up on cytology findings. Request group social worker consultation with patient regarding medicaid application.
[2018-10-06 10:02] LABS: INTERNATIONAL RATION (INR) 1.08
[2018-10-06] MEDS: ENOXAPARIN SODIUM INJ 40 MG/0.4 ML DISP.SYRIN SUBCUT SCH (10:15)
[2018-10-06] MEDS ORDERED: FENTANYL CITRATE INJ/PF 100 MCG/2 ML AMPUL ONE (10:17)
[2018-10-06] MEDS ORDERED: MIDAZOLAM 2 MG/2 ML INJ ONE (10:17)
[2018-10-06] MEDS ORDERED: LIDOCAINE 1% INJ-PF (10 MG/ML) 30 ML SDV ONE (10:40)
[2018-10-06] MEDS: SACUBITRIL/VALSARTAN 24 MG/26 MG TABLET PO SCH ×2 (12:10→17:41)
[2018-10-06] MEDS: CARVEDILOL 3.125 MG TABLET PO SCH ×2 (12:10→23:02)
--- NOTE | 2018-10-06 12:16 | RADIOLOGY REPORT (SQ) ---
EXAM DESCRIPTION: CHEST SINGLE VIEW COMPLETED DATE/TIME: 10/06/2018 11:41 am REASON FOR STUDY: POST LUNG BIOPSY COMPARISON: 10/03/2018, 09/30/2018 EXAM PARAMETERS: NUMBER OF VIEWS: One view. TECHNIQUE: Single frontal radiographic view of the chest acquired. RADIATION DOSE: NA LIMITATIONS: None. FINDINGS: LUNGS AND PLEURA: No pneumothorax post right-sided mediastinal mass biopsy. There is re-accumulation of trace right pleural fluid in the lateral costophrenic sulcus. Minimal pe rsistent right basilar atelectasis. Left lung clear. No left pleural effusion or pneumothorax. MEDIASTINUM AND HILAR STRUCTURES: Right hilar mass, right mediastinal mass unchanged HEART AND VASCULAR STRUCTURES: Heart normal in size. Normal vasculature. BONES: No acute findings. HARDWARE: Clips right axilla post old right mastectomy OTHER: No other significant finding. IMPRESSION: No pneumothorax post right-sided mediastinal mass biopsy TECHNICAL DOCUMENTATION: JOB ID: [id number] [employer]- All Rights Reserved Reading location - IP/workstation name: [email or web address]
--- NOTE | 2018-10-06 12:28 | RADIOLOGY REPORT (SQ) ---
EXAM DESCRIPTION: CT BIOPSY LUNG/MEDIASTINUM; CT NEEDLE PLACEMENT COMPLETED DATE/TIME: 10/06/2018 11:40 am; 10/06/2018 11:39 am REASON FOR STUDY: mediastinal mass ; LUNG BIOPSY R07.89 OTHER CHEST PAIN COMPARISON: CT chest 10/03/2018 TECHNIQUE: CT guided biopsy of the right anterior mediastinal mass performed with conscious sedation . CT Fluoroscopy Time: 8.[address] scanners at this facility use dose modulation, iterative reconstruction, and/or weight based d osing when appropriate to reduce radiation dose to as low as reasonably achievable (ALARA). [facility]: Dose Right [facility]: CareDose [facility]: Dose Right [facility]: Teradose 4D [facility]: [employer] RADIATION DOSE: 64mGy. FINDINGS: After obtaining informed consent and explaining the risks and benefits of conscious sedati on,the patient agreed to the procedure. Prior to the procedure, a time out was performed to verify th e patient's identity and planned procedure. IV pain control was administered and physician direction by the registered nurse using 50 micrograms of fentanyl. Physiologic monitoring was provided before, during, and after sedation. The total pain c ontrol observation time was 20 minutes. Documentation face to face time, the performing proceduralist, spent monitoring the patient: [address] scanning was performed to localize the percutaneous site for the biopsy approach. After sterile skin prep and local lidocaine for skin and deep tissue anesthesia, a coaxial biopsy nee dle was used to obtain multiple cores of tissue. Dr. Lindsay was present during the procedure, reviewe d the biopsy material real-time. The biopsy tissue was also submitted to the lab in formalin. There were no immediate complications. Pathology is pending at the time of dictation. IMPRESSION: CT GUIDED BIOPSY OF THE RIGHT MEDIASTINAL MASS PERFORMED WITHOUT IMMEDIATE COMPLICATION. PATHOLOGY PENDING. COMMENT: Quality ID [id number]: Final reports for procedures using fluoroscopy that document radiation exp osure indices, or exposure time and number of fluorographic images (if radiation exposure indices are not available) Patient medication list reviewed: Yes- Quality ID# [id number]:Eligible professional attests to documenting i n the medical record they obtained, updated, or reviewed the patient's current medications.. TECHNICAL DOCUMENTATION: JOB ID: [id number] Quality ID# 436: Final reports with documentation of one or more dose reduction techniques (e.g., Aut omated exposure control, adjustment of the mA and/or kV according to patient size, use of iterative r econstruction technique) 2010 [employer] All Rights Reserved Reading location - IP/workstation name: [email or web address]
--- NOTE | 2018-10-06 12:28 | RADIOLOGY REPORT (SQ) ---
EXAM DESCRIPTION: CT BIOPSY LUNG/MEDIASTINUM; CT NEEDLE PLACEMENT COMPLETED DATE/TIME: 10/06/2018 11:40 am; 10/06/2018 11:39 am REASON FOR STUDY: mediastinal mass ; LUNG BIOPSY R07.89 OTHER CHEST PAIN COMPARISON: CT chest 10/03/2018 TECHNIQUE: CT guided biopsy of the right anterior mediastinal mass performed with conscious sedation . CT Fluoroscopy Time: 8.[address] scanners at this facility use dose modulation, iterative reconstruction, and/or weight based d osing when appropriate to reduce radiation dose to as low as reasonably achievable (ALARA). [facility]: Dose Right [facility]: CareDose [facility]: Dose Right [facility]: Teradose 4D [facility]: [employer] RADIATION DOSE: 64mGy. FINDINGS: After obtaining informed consent and explaining the risks and benefits of conscious sedati on,the patient agreed to the procedure. Prior to the procedure, a time out was performed to verify th e patient's identity and planned procedure. IV pain control was administered and physician direction by the registered nurse using 50 micrograms of fentanyl. Physiologic monitoring was provided before, during, and after sedation. The total pain c ontrol observation time was 20 minutes. Documentation face to face time, the performing proceduralist, spent monitoring the patient: [address] scanning was performed to localize the percutaneous site for the biopsy approach. After sterile skin prep and local lidocaine for skin and deep tissue anesthesia, a coaxial biopsy nee dle was used to obtain multiple cores of tissue. Dr. Lindsay was present during the procedure, reviewe d the biopsy material real-time. The biopsy tissue was also submitted to the lab in formalin. There were no immediate complications. Pathology is pending at the time of dictation. IMPRESSION: CT GUIDED BIOPSY OF THE RIGHT MEDIASTINAL MASS PERFORMED WITHOUT IMMEDIATE COMPLICATION. PATHOLOGY PENDING. COMMENT: Quality ID 145: Final reports for procedures using fluoroscopy that document radiation exp osure indices, or exposure time and number of fluorographic images (if radiation exposure indices are not available) Patient medication list reviewed: Yes- Quality ID# [id number]:Eligible professional attests to documenting i n the medical record they obtained, updated, or reviewed the patient's current medications.. TECHNICAL DOCUMENTATION: JOB ID: [id number] Quality ID# [id number]: Final reports with documentation of one or more dose reduction techniques (e.g., Aut omated exposure control, adjustment of the mA and/or kV according to patient size, use of iterative r econstruction technique) 2010 [employer]- All Rights Reserved Reading location - IP/workstation name: [email or web address]
--- NOTE | 2018-10-06 13:59 | RADIOLOGY REPORT (SQ) ---
EXAM DESCRIPTION: CHEST SINGLE VIEW COMPLETED DATE/TIME: 10/06/2018 1:41 pm REASON FOR STUDY: POST LUNG BIOPSY *2 HOUR FILM* COMPARISON: None. EXAM PARAMETERS: NUMBER OF VIEWS: One view. TECHNIQUE: Single frontal radiographic view of the chest acquired. RADIATION DOSE: NA LIMITATIONS: None. FINDINGS: LUNGS AND PLEURA: No opacities, masses or pneumothorax. No pleural effusion. MEDIASTINUM AND HILAR STRUCTURES: Right side mediastinal mass. HEART AND VASCULAR STRUCTURES: Cardiomegaly. Small right pleural effusion. BONES: No acute findings. HARDWARE: None in the chest. OTHER: No other significant finding. IMPRESSION: No pneumothorax status post biopsy. TECHNICAL DOCUMENTATION: JOB ID: [id number] [employer]- All Rights Reserved Reading location - IP/workstation name: [email or web address]
--- NOTE | 2018-10-06 21:25 | PDOC PROGRESS REPORT ---
Subjective Progress Note for:: 10/06/18 Subjective:: Post CT guided hilar mass biopsy. She denied any chest pain or difficulty with breathing. No nausea, vomiting, or abdominal pain. Reason For Visit: ACUTE SYSTOLIC FAILURE Physical Exam Vital Signs: Temp Pulse Resp BP Pulse Ox 98.2 F 97 16 110/65 95 10/06/18 16:00 10/06/18 19:00 10/06/18 16:00 10/06/18 16:00 10/06/18 16:00 Intake & Output 10/05/18 10/06/18 10/07/18 06:59 06:59 06:59 Intake Total 358 Balance 358 Weight 72.8 kg 72.6 kg General appearance: PRESENT: no acute distress Head exam: PRESENT: atraumatic, normocephalic Eye exam: PRESENT: conjunctiva pink. ABSENT: scleral icterus Ear exam: PRESENT: normal external ear exam Mouth exam: PRESENT: moist Respiratory exam: PRESENT: clear to auscultation lukas, decreased breath sounds - at lung bases Cardiovascular exam: PRESENT: RRR. ABSENT: diastolic murmur, rubs, systolic murmur Vascular exam: ABSENT: pallor GI/Abdominal exam: PRESENT: normal bowel sounds, soft. ABSENT: distended, guarding, mass, organolmegaly, rebound, tenderness Extremities exam: ABSENT: pedal edema Neurological exam: PRESENT: alert, awake, oriented to person, oriented to place, oriented to time, oriented to situation, CN II-XII grossly intact. ABSENT: motor sensory deficit Psychiatric exam: PRESENT: appropriate affect, normal mood. ABSENT: homicidal ideation, suicidal ideation Skin exam: PRESENT: dry, warm Results Laboratory Results: 10/03/18 05:17 10/03/18 05:17 10/03/18 10:50 Pleural Fluid Fungal Smear - Final 10/03/18 10:50 Pleural Fluid Fungal Smear - Final 10/01/18 10/01/18 10/01/18 10:42 10:42 19:21 Creatine Kinase 137 H 149 H CK-MB (CK-2) 1.05 Troponin I < 0.012 NT-Pro-B Natriuret Pep 2180 H 10/01/18 10/02/18 10/02/18 19:21 02:31 02:31 Creatine Kinase 142 H CK-MB (CK-2) 1.13 1.02 Troponin I < 0.012 < 0.012 NT-Pro-B Natriuret Pep Impressions: Chest CT 10/03/18 00:00 IMPRESSION: 12.6 x 4.5 x 6 cm right-sided mediastinal mass worrisome for primary malignancy, lung cancer versus lymphoma are considerations. Recurrent breast cancer is possible. Thoracentesis Ultrasound 10/03/18 19:06 IMPRESSION: SUCCESSFUL THORACENTESIS USING ULTRASOUND GUIDANCE. Chest X-Ray 10/06/18 00:00 IMPRESSION: No pneumothorax status post biopsy. Guidance Needle Placement CT 10/06/18 00:00 IMPRESSION: CT GUIDED BIOPSY OF THE RIGHT MEDIASTINAL MASS PERFORMED WITHOUT IMMEDIATE COMPLICATION. PATHOLOGY PENDING. Lung Biopsy CT 10/06/18 00:00 IMPRESSION: CT GUIDED BIOPSY OF THE RIGHT MEDIASTINAL MASS PERFORMED WITHOUT IMMEDIATE COMPLICATION. PATHOLOGY PENDING. Assessment & Plan - Diagnosis (1) Acute systolic heart failure Is this a current diagnosis for this admission?: Yes (2) Essential (primary) hypertension Is this a current diagnosis for this admission?: Yes (3) Pleural effusion, right Is this a current diagnosis for this admission?: Yes (4) Mediastinal mass Is this a current diagnosis for this admission?: Yes - Time Time Spent with patient: 25-34 minutes Medications reviewed and adjusted accordingly: Yes Anticipated discharge: Home with Homehealth Within: Other - Inpatient Certification Based on my medical assessment, after consideration of the patient's comorbidities, presenting symptoms, or acuity I expect that the services needed warrant INPATIENT care.: Yes I certify that my determination is in accordance with my understanding of Medicare's requirements for reasonable and necessary INPATIENT services [42 CFR 412.3e].: Yes Medical Necessity: Significant Comorbidiites Make Outpatient Treatment Too Risky, Need Close Monitoring Due to Risk of Patient Decompensation, Need For Continuous Telemetry Monitoring, Risk of Complication if Not Cared For in Hospital, Risk of Diagnosis Which Will Require Inpatient Eval/Care/Monitoring Post Hospital Care: D/C Regional Office Coordinator Documentation - Plan Summary Plan Summary: Follow up on biopsy pathology findings. I discussed her cytology findings with her and children at bedside. Obtain repeat post procedure chest X ray in am. Continue all other current medication management.
[2018-10-07] MEDS: SACUBITRIL/VALSARTAN 24 MG/26 MG TABLET PO SCH ×2 (09:13→17:22)
[2018-10-07] MEDS: CARVEDILOL 3.125 MG TABLET PO SCH ×2 (09:13→21:09)
[2018-10-07] MEDS: ENOXAPARIN SODIUM INJ 40 MG/0.4 ML DISP.SYRIN SUBCUT SCH (09:20)
--- NOTE | 2018-10-07 09:24 | RADIOLOGY REPORT (SQ) ---
EXAM DESCRIPTION: CHEST SINGLE VIEW COMPLETED DATE/TIME: 10/07/2018 9:00 am REASON FOR STUDY: Post CT Guided Hilar mass biopsy COMPARISON: Chest films 09/30/2018, 10/06/2018 Mediastinal biopsy 10/06/2018 EXAM PARAMETERS: NUMBER OF VIEWS: One view. TECHNIQUE: Single frontal radiographic view of the chest acquired. RADIATION DOSE: NA LIMITATIONS: None. FINDINGS: LUNGS AND PLEURA: Again, patient is post mediastinum biopsy yesterday with anterior medias tinal mass. No recurrent significant pleural effusion. No pneumothorax. Stable atelectasis at the right lung base. Left lung is clear. MEDIASTINUM AND HILAR STRUCTURES: Right-sided hilar and anterior mediastinal mass unchanged HEART AND VASCULAR STRUCTURES: Heart normal in size. Normal vasculature. BONES: No acute findings. HARDWARE: Clips right axilla post right mastectomy OTHER: No other significant finding. IMPRESSION: Stable appearance of the chest TECHNICAL DOCUMENTATION: JOB ID: [id number] [employer]- All Rights Reserved Reading location - IP/workstation name: [email or web address]
--- NOTE | 2018-10-07 19:33 | PDOC PROGRESS REPORT ---
Subjective Progress Note for:: 10/07/18 Subjective:: Her hilar mass biopsy was reported as poorly differentiated carcinoma favoring breast in view of her prior history of breast cancer. Patient reported that she had 10 years of Arimidex therapy after her chemotherapy and radiation therapy for breast cancer. Her medical oncologist is Dr. Malagon. She denied any chest pain or difficulty with breathing. No nausea, vomiting, or abdominal pain. Reason For Visit: ACUTE SYSTOLIC FAILURE Physical Exam Vital Signs: Temp Pulse Resp BP Pulse Ox 98.5 F 93 16 92/50 L 94 10/07/18 15:58 10/07/18 15:58 10/07/18 15:58 10/07/18 15:58 10/07/18 15:58 Intake & Output 10/06/18 10/07/18 10/08/18 06:59 06:59 06:59 Intake Total 818 555 Output Total 200 Balance 618 555 Weight 72.6 kg 73.5 kg Physical Exam: General appearance: PRESENT: no acute distress Head exam: PRESENT: atraumatic, normocephalic Eye exam: PRESENT: conjunctiva pink. ABSENT: pallor, scleral icterus Ear exam: PRESENT: normal external ear exam Mouth exam: PRESENT: moist Respiratory exam: PRESENT: clear to auscultation lukas, decreased breath sounds - at lung bases Cardiovascular exam: PRESENT: RRR. ABSENT: diastolic murmur, rubs, systolic murmur GI/Abdominal exam: PRESENT: normal bowel sounds, soft. ABSENT: distended, guarding, mass, organomegaly, rebound, tenderness Extremities exam: ABSENT: pedal edema Neurological exam: PRESENT: alert, awake, oriented to person, oriented to place, oriented to time, oriented to situation, CN II-XII grossly intact. ABSENT: motor sensory deficit Psychiatric exam: PRESENT: appropriate affect, normal mood. ABSENT: homicidal ideation, suicidal ideation Skin exam: PRESENT: dry, warm Results Laboratory Results: 10/03/18 05:17 10/03/18 05:17 10/03/18 10:50 Pleural Fluid - Not Specified Gram Stain - Final 10/03/18 10:50 Pleural Fluid - Not Specified Body Fluid Culture - Final NO AEROBIC OR ANAEROBIC ORGANISMS RECOVERED 10/03/18 10:50 Pleural Fluid Fungal Smear - Final 10/03/18 10:50 Pleural Fluid Fungal Smear - Final 10/01/18 10/01/1810/01/19 10:42 10:42 19:21 Creatine Kinase 137 H 149 H CK-MB (CK-2) 1.05 Troponin I < 0.012 NT-Pro-B Natriuret Pep 2180 H 10/01/18 10/02/18 10/02/18 19:21 02:31 02:31 Creatine Kinase 142 H CK-MB (CK-2) 1.13 1.02 Troponin I < 0.012 < 0.012 NT-Pro-B Natriuret Pep Impressions: Chest CT 10/03/18 00:00 IMPRESSION: 12.6 x 4.5 x 6 cm right-sided mediastinal mass worrisome for primary malignancy, lung cancer versus lymphoma are considerations. Recurrent breast cancer is possible. Thoracentesis Ultrasound 10/03/18 19:06 IMPRESSION: SUCCESSFUL THORACENTESIS USING ULTRASOUND GUIDANCE. Guidance Needle Placement CT 10/06/18 00:00 IMPRESSION: CT GUIDED BIOPSY OF THE RIGHT MEDIASTINAL MASS PERFORMED WITHOUT IMMEDIATE COMPLICATION. PATHOLOGY PENDING. Lung Biopsy CT 10/06/18 00:00 IMPRESSION: CT GUIDED BIOPSY OF THE RIGHT MEDIASTINAL MASS PERFORMED WITHOUT IMMEDIATE COMPLICATION. PATHOLOGY PENDING. Chest X-Ray 10/07/18 08:00 IMPRESSION: Stable appearance of the chest Assessment & Plan - Diagnosis (1) Acute systolic heart failure Is this a current diagnosis for this admission?: Yes (2) Essential (primary) hypertension Is this a current diagnosis for this admission?: Yes (3) Pleural effusion, right Is this a current diagnosis for this admission?: Yes (4) Mediastinal mass Is this a current diagnosis for this admission?: Yes (5) Metastatic breast carcinoma Is this a current diagnosis for this admission?: Yes Plan: Her hilar mass biopsy revealed poorly differentiated carcinoma favoring breast. I discussed case with patient and son at bedside. She is agreeable with discharge home tomorrow and follow up with Dr Malagon for further evaluation and management. - Time Time Spent with patient: 25-34 minutes Medications reviewed and adjusted accordingly: Yes Anticipated discharge: Home with Homehealth Within: Other - Inpatient Certification Based on my medical assessment, after consideration of the patient's comorbidities, presenting symptoms, or acuity I expect that the services needed warrant INPATIENT care.: Yes I certify that my determination is in accordance with my understanding of Medicare's requirements for reasonable and necessary INPATIENT services [42 CFR 412.3e].: Yes Medical Necessity: Significant Comorbidiites Make Outpatient Treatment Too Risky, Need Close Monitoring Due to Risk of Patient Decompensation, Risk of Complication if Not Cared For in Hospital, Risk of Diagnosis Which Will Require Inpatient Eval/Care/Monitoring Post Hospital Care: D/C Ophthalmic Asst Documentation - Plan Summary Plan Summary: D/C home tomorrow if clinically stable. She will follow up with Dr Malagon on outpatient on 10/14/18.
[2018-10-08 09:38] VITALS: BP 110/65
--- NOTE | 2018-10-08 18:49 | PDOC DISCHARGE SUMMARY ---
General - Admit/Disc Date/PCP Admission Date/Primary Care Provider: 10/01/18 10:43 ARLETH ROSAS MD Discharge Date: 10/08/18 - Discharge Diagnosis (1) Acute systolic heart failure Is this a current diagnosis for this admission?: Yes (2) Essential (primary) hypertension Is this a current diagnosis for this admission?: Yes (3) Pleural effusion, right Is this a current diagnosis for this admission?: Yes (4) Mediastinal mass Is this a current diagnosis for this admission?: Yes (5) Metastatic breast carcinoma Is this a current diagnosis for this admission?: Yes - Additional Information Resuscitation Status: Full Code Discharge Diet: As Tolerated Discharge Activity: Activity As Tolerated, Balance Activity w/Rest, Weigh Daily Prescriptions: Carvedilol [Coreg 3.125 mg Tablet] 3.125 mg PO Q12 #60 tablet Sacubitril/Valsartan [Entresto 24 mg/26 mg Tablet] 1 tab PO BID #60 tablet Home Medications: Aspirin [Ecotrin 81 mg EC Tablet] 81 mg PO DAILY 10/01/18 Ferrous Sulfate [Slow Fe] 142 mg PO DAILY 10/01/18 Ibuprofen 200 mg PO DAILYP PRN 10/01/18 Carvedilol [Coreg 3.125 mg Tablet] 3.125 mg PO Q12 #60 tablet 10/08/18 Sacubitril/Valsartan [Entresto 24 mg/26 mg Tablet] 1 tab PO BID #60 tablet 10/08/18 History of Present Illness Patient complains of: Wheezing History of Present Illness: REJI SETHI is a 83 year old female, She came to the office for the first time yesterday as a new patient, she complained of wheezing about a week ago, she said the symptoms started when she went for a , she thought the symptom was probably because she was overheated.I ordered a chest x-ray, it demonstrated pleural effusion,The symptoms she described was suspicious for CHF, she was admitted from a patient into the hospital for further evaluation of her symptoms. The BNP was elevated,, 2D echo was done, it demonstrated dilated left ventricle with ejection fraction of 40% there was also associated pulmonary hypertension. She has no history of documented heart failure so clearly this is a new onset CHF. She has history of hypertension, she uses only diuretic hydrochlorothiazide/triamterene for the control of blood pressure, She is not even compliant with the medication. Hospital Course Hospital Course: She was admitted for wheezing, elevated NT-Pro BNP, and borderline LVEF at 40 % as case of newly diagnosed CHF. Her chest X ray revealed right sided pleural effusion and thoracentesis pleural fluid analysis revealed no malignant cells on cytology. Biopsy of right hilar mass revealed poorly differentiated carcinoma with features that favor breast as primary site in this patient with history of Breast cancer. I discussed case with Dr. Malagon, her medical oncologist, and she will follow up with her on 10/14/2018 as earlier scheduled. She will be discharged home with MATERIAL STRESS TESTER services including visiting nurse and PCS. Physical Exam Vital Signs: Temp Pulse Resp BP Pulse Ox 98.3 F 78 20 106/56 L 97 10/08/18 00:08 10/08/18 02:00 10/08/18 00:08 10/08/18 00:08 10/08/18 00:08 Intake & Output 10/07/18 10/08/18 10/09/18 06:59 06:59 06:59 Intake Total 818 655 Output Total 200 400 Balance 618 255 Weight 73.5 kg 71.6 kg Results Laboratory Results: 10/03/18 05:17 10/03/18 05:17 10/03/18 10:50 Pleural Fluid - Not Specified Gram Stain - Final 10/03/18 10:50 Pleural Fluid - Not Specified Body Fluid Culture - Final NO AEROBIC OR ANAEROBIC ORGANISMS RECOVERED 10/01/18 10/01/18 10/01/18 10:42 10:42 19:21 Creatine Kinase 137 H 149 H CK-MB (CK-2) 1.05 Troponin I < 0.012 NT-Pro-B Natriuret Pep 2180 H 10/01/18 10/02/18 10/02/18 19:21 02:31 02:31 Creatine Kinase 142 H CK-MB (CK-2) 1.13 1.02 Troponin I < 0.012 < 0.012 NT-Pro-B Natriuret Pep Impressions: Chest CT 10/03/18 00:00 IMPRESSION: 12.6 x 4.5 x 6 cm right-sided mediastinal mass worrisome for primary malignancy, lung cancer versus lymphoma are considerations. Recurrent breast cancer is possible. Thoracentesis Ultrasound 10/03/18 19:06 IMPRESSION: SUCCESSFUL THORACENTESIS USING ULTRASOUND GUIDANCE. Guidance Needle Placement CT 10/06/18 00:00 IMPRESSION: CT GUIDED BIOPSY OF THE RIGHT MEDIASTINAL MASS PERFORMED WITHOUT IMMEDIATE COMPLICATION. PATHOLOGY PENDING. Lung Biopsy CT 10/06/18 00:00 IMPRESSION: CT GUIDED BIOPSY OF THE RIGHT MEDIASTINAL MASS PERFORMED WITHOUT IMMEDIATE COMPLICATION. PATHOLOGY PENDING. Chest X-Ray 10/07/18 08:00 IMPRESSION: Stable appearance of the chest Qualifiers - * PATIENT BEING DISCHARGED WITH ANY OF THE FOLLOWING DIAGNOSIS: No Acute Heart Failure - Is this a Heart Failure Patient?: Yes Documentation of LVEF assessment?: Yes LVEF < 40%?: No- if no continue to question #3 3. Anticoagulant therapy for permanect/persistent/paraoxysmal Afib or Aflutter: N/A Follow-up Appointment scheduled within 7 days?: Yes Plan Discharge Plan: D/C home today. Follow up in the office as instructed upon discharge.
== END 2018-10-08 11:44 | disposition home or self-care (01) | DRG 291 ==
LOC: ER 09:50 → INTOOBSV 10:43 → OBSVTOIN 10:43 → EH 10:43 → 3W 16:40
PROVIDERS: ADMIT Internal Medicine; ATTEND Internal Medicine
PROC: 0W993ZX Drainage of Right Pleural Cavity, Percutaneous Approach, Diagnostic (ICD-10-PCS; principal; 2018-10-03)
PROC: 0W9 Anatomical Regions, General, Drainage (ICD-10-PCS; 2018-10-06)
PROC: 0B9K3ZX Drainage of Right Lung, Percutaneous Approach, Diagnostic (ICD-10-PCS; 2018-10-06)
DX: I11.0 Hypertensive heart disease with heart failure (principal); I50.21 Acute systolic (congestive) heart failure; J91.0 Malignant pleural effusion; C78.1 Secondary malignant neoplasm of mediastinum; C78.01 Secondary malignant neoplasm of right lung; R19.09 Other intra-abdominal and pelvic swelling, mass and lump; I27.20 Pulmonary hypertension, unspecified; I25.5 Ischemic cardiomyopathy; Z85.3 Personal history of malignant neoplasm of breast; Z90.11 Acquired absence of right breast and nipple
CPT/HCPCS: 32405; 32555; 36415; 71045; 71046; 71260; 77012; 78452; 80048; 80053; 80061; 80076; 81001; 82150; 82550; 82553; 82945; 83036; 83615; 83735; 83880; 84157; 84439; 84443; 84484; 85025; 85379; 85610; 85730; 87070; 87075; 87086; 87101; 87205; 87252; 88305; 88341; 88342; 89050; 93005; 93010; 93017; 93306; 99285; A9500; J1650; J1940; J2250; J2785; J3010; J3490; J7030; Q9969

== ENCOUNTER → 2018-10-27 | Outpatient (CLI) | payer MEDICARE ==
--- NOTE | 2018-10-27 14:07 | RADIOLOGY REPORT (SQ) ---
EXAM DESCRIPTION: MRI HEAD COMBO COMPLETED DATE/TIME: 10/27/2018 1:47 pm REASON FOR STUDY: C50.411 MALIG NEOPLM OF UPPER-OUTER QUADRANT OF RIGHT FEMALE BREAST C50.411 MALIG NEOPLM OF UPPER-OUTER QUADRANT OF RIGHT FEMALE COMPARISON: None. TECHNIQUE: Multiplanar imaging includes noncontrasted T1, T2, FLAIR, diffusion with ADC map and post gadolinium contrast T1 sequences. Images stored on PACS. CONTRAST TYPE AND DOSE: 20 mL Dotarem. RENAL FUNCTION: GFR > 60. LIMITATIONS: None. FINDINGS: ANATOMY: No anomalies. Normal vascular flow voids. Pituitary fossa normal. CSF SPACES: Normal in size and contour. No hemorrhage. CEREBRUM: Sulci and gyri normal in size and contour. There are scattered areas of T2 signal prolonga tion within the periventricular and subcortical white matter, nonspecific but likely sequelae of micr oangiopathic disease. No evidence of hemorrhage, mass, or extraaxial fluid collection. No abnormal en hancement post contrast. POSTERIOR FOSSA: No signal alteration. No hemorrhage. No edema, masses, or mass effect. Internal ari tory canals, cerebellopontine angles, mastoids normal. No enhancing lesions. No abnormal enhancement post contrast. DIFFUSION IMAGING: Negative for acute or subacute infarction. ORBITS: No masses. Globes normal. Left cataract surgery. PARANASAL SINUSES: No fluid levels. Mucosa normal. OTHER: No other significant finding. IMPRESSION: 1. No evidence of acute intracranial abnormality. No evidence of intracranial metastat ic disease. 2. Mild nonspecific white matter changes, likely sequelae of microangiopathic disease. EVIDENCE OF ACUTE STROKE: NO. TECHNICAL DOCUMENTATION: JOB ID: [id number]- All Rights Reserved Reading location - IP/workstation name: [email or web address]
== END ==
LOC: RAD 12:28
PROVIDERS: ATTEND Internal Medicine Medical Oncology
DX: C50.411 Malignant neoplasm of upper-outer quadrant of right female breast (principal)
CPT/HCPCS: 82565; 70553; A9576

== ENCOUNTER → 2018-10-28 | Outpatient (CLI) | payer MEDICARE ==
--- NOTE | 2018-10-29 09:57 | RADIOLOGY REPORT (SQ) ---
EXAM DESCRIPTION: PET CT SKULL/THIGH COMPLETED DATE/TIME: 10/28/2018 9:17 pm REASON FOR STUDY: (C50.919)MALIGNANT NEOPLASM OF UNSP SITE OF UNSPECIFIED FEMALE BREAST C50.919 MAL IGNANT NEOPLASM OF UNSP SITE OF UNSPECIFIED FEMAL COMPARISON: CT chest dated 10/03/2018 RADIONUCLIDE AND DOSE: 10.74 mCi F18 FDG The route of agent administration: Intravenous FASTING BLOOD SUGAR: 85 mg/dl CONTRAST TYPE AND DOSE: No CT contrast given. TECHNIQUE: Blood glucose level was verified. Above dose of FDG was injected intravenously. 2-D seg mented attenuation correction images were obtained from the base of the skull to the midthighs. Nonc ontrast CT images were obtained for attenuation correction and fusion with emission images. CT image s were performed without oral or intravenous contrast and are not sensitive for parenchymal lesions. A series of overlapping emission PET images were obtained. Images reviewed and manipulated at [facility] work station by the radiologist. Images stored on PACS. LIMITATIONS: None. FINDINGS: HEAD AND NECK: There is asymmetric uptake in the left lobe of the thyroid gland. Correlat ion with ultrasound is recommended. SUVs greater than 4. CHEST: There is abnormal uptake in the right paramediastinal mass. SUV is greater than 6 consistent with neoplasm. ABDOMEN AND PELVIS: No areas of abnormal metabolic activity in the abdomen or pelvis. Expected physi ologic activity is present in the genitourinary system and bowel. PROXIMAL LOWER EXTREMITIES: No areas of abnormal metabolic activity in the soft tissues of the lower extremities. BONES: No abnormal metabolic activity in the visualized skeleton. ADDITIONAL CT FINDINGS: No additional significant findings on the noncontrast CT images. OTHER: No other significant findings. IMPRESSION: 1. Abnormal uptake in the large right paramediastinal mass. SUV is greater than 6 consi stent with neoplasm. 2. Abnormal uptake in the left lobe of the thyroid gland. SUV is greater than 4. Correlation with ultrasound is recommended. 3. No abnormal uptake in the abdomen or pelvis. TECHNICAL DOCUMENTATION: JOB ID: [id number] [employer]- All Rights Reserved Reading location - IP/workstation name: [email or web address]
== END ==
LOC: RAD 16:15
PROVIDERS: ATTEND Internal Medicine Medical Oncology
DX: C50.411 Malignant neoplasm of upper-outer quadrant of right female breast (principal)
CPT/HCPCS: 78815; A9552

== ENCOUNTER → 2018-10-31 | Outpatient (CLI) | payer MEDICARE ==
--- NOTE | 2018-10-31 16:13 | RADIOLOGY REPORT (SQ) ---
EXAM DESCRIPTION: NM WHOLE BODY BONE SCAN COMPLETED DATE/TIME: 10/31/2018 3:57 pm REASON FOR STUDY: (C50.411)MALIG NEOPLM OF UPPER-OUTER QUADRANT OF RIGHT FEMALE BREAST C50.411 HUONG G NEOPLM OF UPPER-OUTER QUADRANT OF RIGHT FEMALE COMPARISON: PET-CT 10/28/2018 RADIONUCLIDE AND DOSE: 20 millicuries Tc99m HDP. The route of agent administration: Intravenous. ADDITIONAL DRUGS AND DOSES: None. TECHNIQUE: Routine delayed images at 3 hours post radionuclide injection acquired of the bony skelet on including anterior and posterior whole-body projections and additional focused images as needed. LIMITATIONS: None. FINDINGS: BONES: Normal visualization without areas of photopenia or increased bony uptake of radiop harmaceutical. KIDNEYS: The uptake in the left renal pelvis is slightly prominent. OTHER: No other significant finding. IMPRESSION: NORMAL BONE SCAN. COMMENT: Quality measure 147: Current bone scan is compared with any available plain radiographs, p rior bone scans, and CT/MRI. TECHNICAL DOCUMENTATION: JOB ID: [id number] [employer]- All Rights Reserved Reading location - IP/workstation name: [email or web address]
== END ==
LOC: RAD 08:04
PROVIDERS: ATTEND Internal Medicine Medical Oncology
DX: C50.411 Malignant neoplasm of upper-outer quadrant of right female breast (principal)
CPT/HCPCS: 78306; A9561; Q9969

== ENCOUNTER → 2018-11-04 | Outpatient (CLI) | payer MEDICARE ==
--- NOTE | 2018-11-04 12:58 | RADIOLOGY REPORT (SQ) ---
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 RADIONUCLIDE AND DOSE: 25 mCi technetium 99m labeled red blood cells The route of agent administration: Intravenous TECHNIQUE: Following administration of the radionuclide, gated images of the heart are obtained in t hree projections. Left ventricular functional analysis performed. LIMITATIONS: None. FINDINGS: LEFT VENTRICULAR FUNCTION: EJECTION FRACTION: 42%. END-DIASTOLIC VOLUME: 97 mL. END-SYSTOLIC VOLUME: 50 mL. WALL MOTION: No focal wall motion abnormalities. OTHER: No other significant finding. IMPRESSION: Reduced left ventricular function with an ejection fraction of 42%. No significant vent ricular dilatation. TECHNICAL DOCUMENTATION: JOB ID: [id number] [employer]- All Rights Reserved Reading location - IP/workstation name: [email or web address]
== END ==
LOC: RAD 10:40
PROVIDERS: ATTEND Internal Medicine Medical Oncology
DX: I42.7 Cardiomyopathy due to drug and external agent (principal); T45.1X5A Adverse effect of antineoplastic and immunosuppressive drugs, initial encounter
CPT/HCPCS: 78472; A9560; Q9969